=== PATIENT | male | born 1975 | race Caucasian/White ===

== ENCOUNTER 2018-06-29 16:21 | Emergency (ER) | payer SELFPAY ==
[~2018-06-29] VITALS: Ht 162.6 cm; Wt 68.0 kg
[2018-06-29 17:42] LABS: CLARITY URINE CLEAR (CLEAR); COLOR URINE DARK YELLOW (YELLOW); KETONES URINE NEGATIVE (NEGATIVE); LEUKOCYTE ESTERASE URINE NEGATIVE (NEGATIVE); NITRITE URINE NEGATIVE (NEGATIVE); OCCULT BLOOD URINE NEGATIVE (NEGATIVE); PROTEIN URINE 1+ (NEGATIVE); SPECIFIC GRAVITY URINE 1.041 (1.005-1.030)
[2018-06-30] MEDS ORDERED: SODIUM CHLORIDE 0.9% 1,000 ML IV ONE (00:43)
[2018-06-30] MEDS ORDERED: ONDANSETRON HCL 4MG/2ML VIAL IV STA (00:43)
[2018-06-30] MEDS ORDERED: MORPHINE SULFATE 4 MG/ML CPJ (NOT FOR IM USE) IV STA (00:43)
[2018-06-30] MEDS ORDERED: FAMOTIDINE 20MG/2ML VIAL IV ONE (00:45)
[2018-06-30 01:10] LABS: BASOPHILS % 0.6 % (0.0-2.0); EOSINOPHILS % 0.9 % (0.0-5.0); HEMOGLOBIN. 15.1 g/dL (14.0-18.0); LYMPHOCYTES % 12.9 % (20.0-50.0); MEAN CORPUSCULAR VOLUME 92.6 fL (80.0-94.0); MEAN PLATELET VOLUME 8.4 fl (7.4-10.4); MONOCYTES % 10.9 % (2.0-8.0); NEUTROPHILS % 74.7 % (40.0-76.0); PLATELET 205 x1000/uL (130-400); RED BLOOD CELL COUNT 4.86 mill/uL (4.7-6.1); RED CELL DISTRIBUTION WIDTH 13.4 % (11.6-14.6)
[2018-06-30 01:13] LABS: CHLORIDE 105 mEq/L (98-107)
[2018-06-30 04:55] VITALS: BP 130/76
== END 2018-06-30 05:00 | disposition home or self-care (01) ==
LOC: ER 18:50
DX: R10.12 Left upper quadrant pain (principal); R19.7 Diarrhea, unspecified; R51 Headache; F12.10 Cannabis abuse, uncomplicated; R63.0 Anorexia; M79.1 Myalgia
CPT/HCPCS: 36415; 74176; 80053; 81003; 83690; 85025; 96361; 96374; 96375; 99285; J2270; J2405; J3490; J7030; Z7610